=== PATIENT | male | born 1950 | race Caucasian/White ===

== ENCOUNTER 2017-04-10 05:39 | Day surgery (SDC) | payer OTHER, BC ==
[~2017-04-10] VITALS: Ht 177.8 cm; Wt 131.7 kg
[~2017-04-10 05:39] MED LIST: BENADRYL25 MG PO; IRON325 M1 PO; LOFIBRA,TRIGLI160 MG PO; LOPRESSOR HC1 TABLET PO; LORCET PLUS 7.1 EACH PO; METFORMIN HCL500 M1 PO; NAPROSYN500 MG PO; OXYCODONE HCL5 MG PO; OXYCONTIN10 MG PO; STOOL SOFTENER100 M1 PO; TYLENOL REGULA325 MG PO; XARELTO10 MG PO; [UNRECOGNIZED DRUG - OTHER]
[2017-04-10 06:34] LABS: POINT-OF-CARE METER ID UU14174212
[2017-04-10] MEDS ORDERED: LOPRESSOR HC1 TABLE2 PO (06:36)
[2017-04-10 06:41] VITALS: BP 145/89
[2017-04-10 10:56] LABS: POINT-OF-CARE METER ID UU13113675
[2017-04-10 14:05] VITALS: BP 146/72
[2017-04-10 15:10] VITALS: BP 118/68
[2017-04-10 17:10] VITALS: BP 123/72
[2017-04-10 19:29] VITALS: BP 125/74
[2017-04-10 23:23] VITALS: BP 107/63
[2017-04-11 04:15] VITALS: BP 128/83
[2017-04-11 08:57] VITALS: BP 132/88
== END 2017-04-11 15:14 | disposition home or self-care (01) ==
LOC: SDC 05:39 → 3EAST 11:27 → 2SOUTH 11:27 → SDC 15:22 → 3EAST 19:17
PROVIDERS: Neurological Surgery
PROC: 00NY0ZZ Release Lumbar Spinal Cord, Open Approach (ICD-10-PCS; principal; 2017-04-10)
DX: M48.06 Spinal stenosis, lumbar region (principal); M51.36 Other intervertebral disc degeneration, lumbar region; M54.16 Radiculopathy, lumbar region; R33.9 Retention of urine, unspecified; R20.0 Anesthesia of skin; R26.2 Difficulty in walking, not elsewhere classified; E11.9 Type 2 diabetes mellitus without complications; I10 Essential (primary) hypertension; Z79.84 Long term (current) use of oral hypoglycemic drugs; Z83.3 Family history of diabetes mellitus
CPT/HCPCS: 72020; 76000; 82948; G0378; G8987 GO CJ; G8988 CI; J0131; J0330; J0690; J1170; J2250; J2405; J2710; J3010; J3370; J3480